=== PATIENT | male | born 1940 | race Caucasian/White ===

== ENCOUNTER 2017-10-05 11:03 | Outpatient (CLI) | payer OTHER ==
[2017-10-05 14:23] LABS: eGFR (African) > 60; eGFR (Non-African) > 60
== END 2017-10-05 11:05 ==
LOC: LAB 11:03
PROVIDERS: ATTEND Family Medicine
DX: E78.00 Pure hypercholesterolemia, unspecified (principal); I10 Essential (primary) hypertension; M10.9 Gout, unspecified
CPT/HCPCS: 36415; 80053; 80061; 84550

== ENCOUNTER 2017-10-06 10:00 | Outpatient (CLI) | payer OTHER ==
[2017-10-06] MEDS ORDERED: ALBUTEROL SULFATE 2.5 MG/3 ML AMPUL.NEB NEB ONE (10:10)
== END 2017-10-06 10:02 ==
LOC: RT 10:00
PROVIDERS: ATTEND Family Medicine
DX: R06.09 Other forms of dyspnea (principal)
CPT/HCPCS: 94060

== ENCOUNTER 2017-11-26 12:20 | Outpatient (CLI) | payer OTHER ==
[2017-11-26 13:05] LABS: eGFR (African) > 60; eGFR (Non-African) > 60
== END 2017-11-26 12:25 ==
LOC: LAB 12:20
PROVIDERS: ATTEND Family Medicine
DX: I10 Essential (primary) hypertension (principal)
CPT/HCPCS: 36415; 80048

== ENCOUNTER 2017-12-23 14:15 | Outpatient (CLI) | payer OTHER ==
--- NOTE | 2017-12-24 14:26 | OP Clinic Progress Note ---
REASON FOR VISIT: This 77-year-old pleasant mesomorphic male has had pain and discomfort over several months of the left pinna. He has had a biopsy and it was not cancer. He has slept for about 60 years close to 100 percent of the time on his left side. He has a tender area overlying the upper aspect of the pinna on the antihelix. There is a keratotic area in that site in addition. Again, by history, this is not cancerous despite it being clearly keratotic. Ear canals on both sides are clear, as are the eardrums. There is no other gross evident lesion. 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 Sometimes these have tried to be injected with steroids and in my experience, that has been universally a failure. I offered excision of the cartilage underlying this lesion along with the perichondrium. Because he has a keratotic area on the skin and it is a superficial layer, I would tend to excise that in addition. I pointed out it is not a guarantee it is going to solve the issue, but to my estimation, it is the highest probability and the best choice for the patient. There will be a small change of the contour of the ear. It may or may not be disagreeable. Efforts would be made to try to make this aesthetically acceptable as possible. This issue is mentioned to the patient and he accepts a variety of outcomes. cc: Dr. Mk GALLAGHER
== END 2017-12-23 14:30 ==
LOC: ENT 14:15
PROVIDERS: ATTEND Otolaryngology
DX: H61.002 Unspecified perichondritis of left external ear (principal)
CPT/HCPCS: G0463